=== PATIENT | male | born 1960 | race Caucasian/White ===

== ENCOUNTER 2020-02-05 03:16 | Emergency (ER) | payer OTHER, SELFPAY ==
[2020-02-05 03:22] VITALS: BP 201/107; PULSE 92; RESP 20; TEMP 36.8; O2SAT 98; BMI 49.4
--- NOTE | 2020-02-05 03:34 | ECG_ITS ---
Test Reason : CHEST PAIN Blood Pressure : / mmHG Vent. Rate : 085 BPM Atrial Rate : 085 BPM P-R Int : 148 ms QRS Dur : 076 ms QT Int : 396 ms P-R-T Axes : 063 020 042 degrees QTc Int : 471 ms Normal sinus rhythm Normal ECG When compared with ECG of 22-NOV-2019 11:41, Heart rate has increased Referred By: Nissa Burciaga Electronically Signed By:SUE EDDY MD
[2020-02-05 05:16] LABS: Basophils Percent Auto 0.9 % (0-2); Eosinophils Absolute Auto 0.3 X10*3/uL (0.0-0.4); Eosinophils Percent Auto 7.1 % (0-4); Hematocrit 36.5 % (42-52); Imm Gran Abs Auto 0.01 X10*3/uL (0.00-0.03); Imm Gran Pct Auto 0.3 % (0.0-0.4); Lymphocytes Absolute Auto 0.6 X10*3/uL (1.2-4.9); Lymphocytes Percent Auto 18.2 % (20-40); MANUAL DIFF FLAG NO; Mean Corpuscular HGB Conc 32.9 g/dl (31.0-36.0); Mean Corpuscular Hemoglobin 29.6 pg (27.0-33.0); Mean Corpuscular Volume 89.9 fL (80-98); Mean Platelet Volume 12.5 fL (9.4-12.4); Monocytes Absolute Auto 0.4 X10*3/uL (0.1-1.2); Monocytes Percent Auto 11.1 % (2-11); Neutrophils Absolute Auto 2.2 X10*3/uL (2.0-8.3); Neutrophils Percent Auto 62.4 % (45-73); Red Blood Count 4.06 X10*6/uL (4.60-5.80); Red Cell Distribution Width 14.9 % (11.0-16.0); SCAN SMEAR FLAG 1; White Blood Count 3.5 X10*3/uL (4.8-10.8)
[2020-02-05 05:17] LABS: Platelet Count 67 X10*3/uL (160-400)
[2020-02-05 05:43] LABS: Anion Gap 8 (12-20); Blood Urea Nitrogen 8 mg/dL (9-16); Calcium 8.1 mg/dL (8.4-10.2); Carbon Dioxide 24 mmol/L (22-29); Chloride 109 mmol/L (96-108); Creatinine Clr Calc Pharmacy 157.9; Estimated Glomerular Filt Rate > 60; Glucose Random 224 mg/dL (60-115); Potassium 4.2 mmol/l (3.3-5.1); Sodium 137 mmol/L (135-145)
[2020-02-05 05:45] LABS: B Type Natriuretic Peptide 20 pg/mL (<100); Troponin-I High Sensitivity 5.3 ng/L (<3.5-35.0)
--- NOTE | 2020-02-05 06:15 | ED.CHESTPAIN ---
HPI - Chest Pain General Chief Complaint: Chest Pain Stated Complaint: HIGH BLOOD PRESSURE Time Seen by Provider: 02/05/20 04:27 Source: patient Mode of arrival: ambulatory Limitations: no limitations History of Present Illness HPI narrative: patient comes in complaining of shortness of breath and hypertension. Patient states that he had no chest pain at all. Patient states he woke up gasping for air, took his blood pressure, it was elevated, then took his prescribed blood pressure medication and started feeling better. MD complaint: other ( Shortness of breath) Onset (ago): hour(s) Onset: during rest Pain radiation: none Pain scale (0-10): 0 Exacerbating factors: nothing Treatment prior to arrival: none Related Data Home Medications Medication Instructions Recorded Confirmed cyanocobalamin (vitamin B-12) 1,000 mcg PO DAILY 02/01/20 02/01/20 [Vitamin B-12] ferrous sulfate 324 mg PO DAILY 02/01/20 02/01/20 lisinopril 20 mg PO DAILY 02/01/20 02/01/20 nadolol 20 mg PO DAILY 02/01/20 02/01/20 Allergies Allergy/AdvReac Type Severity Reaction Status Date / Time No Known Allergies Allergy Verified 02/01/20 07:55 [No Known Allergies*] Review of Systems Review of Systems: Constitutional: No Weight loss, No Fever, No Chills, No Night Sweats, No Fatigue, No Malaise ENT/Mouth: No Hearing loss, No Ear Pain, No Nasal Congestion, No Sinus Pain, No Hoarseness, No sore throat, No Rhinorrhea, No Swallowing Difficulty Eyes: No Eye Pain, No Swelling, No Redness, No Foreign Body, No Discharge, No Vision Changes Cardiovascular: No Chest Pain, No SOB, No Dyspnea on Exertion, No Orthopnea, No Edema, No Palpitations Respiratory: No Cough, No Sputum, No Wheezing, No Smoke Exposure, Dyspnea which resolved now Gastrointestinal: No Nausea, No Vomiting, No Diarrhea, No Constipation, No abdominal Pain, No Hematochezia, No Melena Genitourinary: no irregular bleeding, No Dysuria, No Urinary Frequency, No Hematuria, No Urinary Incontinence, No Urgency, No Flank Pain, No Urinary Flow Changes, No Hesitancy Musculoskeletal: No joint pain, No Myalgias, No Joint Swelling Skin: No Skin Lesions, No rash Neuro: No Weakness, No Numbness, No Paresthesias, No Loss of Consciousness, No Dizziness, No Headache Psych: No Anxiety/Panic, No Depression, No SI/HI/AH/VH, No Social Issues, Heme/Lymph: No Bruising, No Bleeding,No Lymphadenopathy Endocrine: No Polyuria, No Polydipsia, No Temperature Intolerance PMF Past Medical History Medical History Hepatitis C History of drug use Iron deficiency anemia Morbid obesity Pancytopenia Pernicious anemia Surgical History History of esophagogastroduodenoscopy (EGD) Family History Family History (Updated 02/01/20 @ 10:59 by Cece Yang MD) Sister Colon cancer Father Colon cancer Social History Social History Advance Directives: No Physical Exam Vital Signs: Vital Signs: Vital Signs Temp Pulse Resp BP Pulse Ox 02/05/20 03:22 98.2 F 92 20 201/107 H 98 Body Mass Index 49.4 blood pressure now 152/78 Appearance: Alert. Oriented X3. No acute distress. Eyes: Pupils equal, round and reactive to light. ENT: Pharynx normal. Neck: Normal inspection. Neck supple. No lymph nodes noted. No crepitus CVS: Normal heart rate and rhythm. Pulses normal. Normal S1 and S2 Respiratory: No respiratory distress. Breath sounds normal. No Wheezing. No rales Abdomen: Soft and nontender. No rigidity. No distention. good BS x4 Skin: Skin warm and dry. Normal skin color. Normal skin turgor. Extremities: No lower extremity edema. No lower extremity edema. No Lacerations. No Rash Neuro: Oriented X 3. No motor deficit. No sensory deficit. Moving all extermities. No slurred speech. Course Reevaluation(s) Reevaluation #1: patient remains asymptomatic. MDM - Chest Pain MDM Narrative Medical decision making narrative: Patient's troponin is 5.3, patient has had previously slightly bumped troponin, chronic for the patient. Patient remains asymptomatic. As mentioned above, patient's blood pressure improved, now in the 150s systolic. Patient instructed to follow-up with his primary care physician and to be compliant with his home medication for blood pressure. Differential Diagnosis Differential diagnosis: Likely stable angina and atypical chest pain Medical Records Data Attestation: I reviewed the patient's medical records. Lab Data Attestation: I reviewed the patient's lab results. Result diagrams: 02/05/20 05:10 02/05/20 05:10 Labs: Lab Results 02/05/20 02/05/20 02/05/20 Range/Units 05:10 05:10 05:10 WBC 3.5 L (4.8-10.8) X10*3/uL RBC 4.06 L (4.60-5.80) X10*6/uL Hgb 12.0 L (14.0-18.0) g/dl Hct 36.5 L (42-52) % MCV 89.9 (80-98) fL MCH 29.6 (27.0-33.0) pg MCHC 32.9 (31.0-36.0) g/dl RDW 14.9 (11.0-16.0) % Plt Count 67 L D (160-400) X10*3/uL MPV 12.5 H (9.4-12.4) fL Immature Gran % (Auto) 0.3 (0.0-0.4) % Neut % (Auto) 62.4 (45-73) % Lymph % (Auto) 18.2 L (20-40) % [place] % (Auto) 11.1 H (2-11) % Eos % (Auto) 7.1 H (0-4) % Baso % (Auto) 0.9 (0-2) % Lymph # (Auto) 0.6 L (1.2-4.9) X10*3/uL [place] # (Auto) 0.4 (0.1-1.2) X10*3/uL Eos # (Auto) 0.3 (0.0-0.4) X10*3/uL Baso # (Auto) 0.0 (0.0-0.2) X10*3/uL Abs Immat Gran (auto) 0.01 (0.00-0.03) X10*3/uL Absolute Neuts (auto) 2.2 (2.0-8.3) X10*3/uL Absolute Nucleated RBC 0.000 (0.0-0.012) X10*3/uL Nucleated RBC % (auto) 0.0 (0.0-0.2) /100WBC Sodium 137 (135-145) mmol/L Potassium 4.2 (3.3-5.1) mmol/l Chloride 109 H (96-108) mmol/L Carbon Dioxide 24 (22-29) mmol/L Anion Gap 8 L (12-20) BUN 8 L (9-16) mg/dL Creatinine 0.73 (0.5-1.4) mg/dL Estim Creat Clear Calc 157.9 Estimated GFR > 60 Random Glucose 224 H (60-115) mg/dL Calcium 8.1 L (8.4-10.2) mg/dL Troponin I High Sens 5.3 (<3.5-35.0) ng/L B-Natriuretic Peptide 20 (<100) pg/mL Scores Heart Score History: -0- slightly suspicious ECG: -0- normal Age: -1- >45 - <65 Risk factory: -1- 1 or 2 risk factors Troponin: -0- < or = normal limit Score: 2 Risk: 1.7% Discharge Plan Discharge Clinical Impression: Acute dyspnea Hypertension Qualifiers: Hypertension type: essential hypertension Qualified Code(s): I10 - Essential (primary) hypertension Patient Disposition: Home, Self-Care Instructions: Chronic Hypertension (ED) Additional Instructions: please take your medications as prescribed. If you have any worsening symptoms, any new symptoms, please return to the emergency room or call 911 Prescriptions: No Action lisinopril 20 mg tablet 20 mg PO DAILY RF: 0 nadolol 20 mg tablet 20 mg PO DAILY RF: 0 ferrous sulfate 324 mg (65 mg iron) tablet,delayed release (DR/EC) 324 mg PO DAILY RF: 0 cyanocobalamin (vitamin B-12) [Vitamin B-12] 1,000 mcg Tablet 1,000 mcg PO DAILY RF: 0 Stand Alone Forms: Work/School Release
== END 2020-02-05 07:05 | disposition home or self-care (01) ==
PROVIDERS: Emergency Provider Emergency Medicine; PCP Internal Medicine
DX: R06.00 Dyspnea, unspecified (principal); I10 Essential (primary) hypertension; E11.9 Type 2 diabetes mellitus without complications; Z79.84 Long term (current) use of oral hypoglycemic drugs
CPT/HCPCS: 36415; 80048; 83880; 84484; 85025; 93005; 99283; 99284

== ENCOUNTER 2020-03-11 09:18 | Outpatient (REF) | payer OTHER, SELFPAY | END 2020-03-11 09:19 | disposition home or self-care (01) | LOC: HO.LAB 09:18 | PROVIDERS: Visit Provider Internal Medicine | DX: Z20.828 Contact with and (suspected) exposure to other viral communicable diseases (principal) | CPT/HCPCS: C9803; U0003 ==

== ENCOUNTER 2021-09-16 08:42 | Outpatient (REF) | payer OTHER, SELFPAY ==
[2021-09-16 09:25] LABS: COVID-19 Test Negative (Negative)
== END 2021-09-16 08:43 | disposition home or self-care (01) ==
LOC: HO.LAB 08:42
PROVIDERS: Visit Provider Internal Medicine
DX: Z20.822 Contact with and (suspected) exposure to COVID-19 (principal)
CPT/HCPCS: 87635; C9803

== ENCOUNTER 2022-05-06 08:30 | Outpatient (RCR) | payer OTHER, SELFPAY ==
[2020-02-01 09:45] VITALS: BP 162/82; PULSE 88; RESP 18; TEMP 36.9; O2SAT 97; BMI 49.4
[2020-02-01] MEDS: Cyanocobalamin (Vitamin B-12) 1,000 MCG/ML VIAL 1000 MCG IM (10:03)
[2020-02-01 10:34] LABS: MANUAL DIFF FLAG NO
[2020-02-01 10:47] LABS: Basophils Absolute Auto 0.1 X10*3/uL (0.0-0.2); Basophils Percent Auto 1.1 % (0-2); Eosinophils Absolute Auto 0.3 X10*3/uL (0.0-0.4); Eosinophils Percent Auto 6.3 % (0-4); Hematocrit 37.9 % (42-52); Hemoglobin 12.7 g/dl (14.0-18.0); Imm Gran Abs Auto 0.01 X10*3/uL (0.00-0.03); Imm Gran Pct Auto 0.2 % (0.0-0.4); Lymphocytes Absolute Auto 1.1 X10*3/uL (1.2-4.9); Mean Corpuscular HGB Conc 33.5 g/dl (31.0-36.0); Mean Corpuscular Volume 89.6 fL (80-98); Monocytes Absolute Auto 0.7 X10*3/uL (0.1-1.2); Monocytes Percent Auto 12.4 % (2-11); Neutrophils Absolute Auto 3.3 X10*3/uL (2.0-8.3); Red Blood Count 4.23 X10*6/uL (4.60-5.80); Red Cell Distribution Width 14.8 % (11.0-16.0); White Blood Count 5.4 X10*3/uL (4.8-10.8)
[2020-02-01 10:54] LABS: Platelet Count 94 X10*3/uL (160-400)
--- NOTE | 2020-02-01 10:56 | PM.HEMONCPN ---
Medical Summary - Medical Summary Chief complaint: Follow-up Medical Summary: Diagnosis: Pancytopenia, iron deficiency anemia/pernicious anemia History of hepatitis-C, received treatment with interferon in the s. Diagnosed with pernicious anemia in 2019. Vitamin B12 less than 146, positive intrinsic factor antibody. Also started on iron supplementation for iron deficiency. Interval History Interval history: patient is here in follow-up. He is doing very well and has no complaints today. He does not remember if he has been taking iron supplementation. He has been coming every month for his vitamin B12 injections. He denies any fatigue, loss of appetite or weight loss. He denies any abdominal discomfort or change in bowel habits. Review of Systems - Constitutional Reports as per HPI, Reports no additional constitutional complaints PMFSH Medical History: Medical History (Last Updated 02/01/20 @ 07:53 by Arielle Velazquez, RN) Hepatitis C History of drug use Iron deficiency anemia Morbid obesity Pancytopenia Pernicious anemia Family History: Family History (Last Updated 02/01/20 @ 10:59 by Cece Yang MD) Sister Colon cancer Father Colon cancer Surgical History: Surgical History (Last Updated 02/01/20 @ 07:54 by Arielle Velazquez, RN) History of esophagogastroduodenoscopy (EGD) Oncology Screenings - ECOG Performance Status ECOG Performance Status: 0 Home Medications and Allergies Home Medications Medication Instructions Recorded Confirmed Type cyanocobalamin (vitamin B-12) 1,000 mcg PO DAILY 02/01/20 02/01/20 History [Vitamin B-12] ferrous sulfate 324 mg PO DAILY 02/01/20 02/01/20 History lisinopril 20 mg PO DAILY 02/01/20 02/01/20 History nadolol 20 mg PO DAILY 02/01/20 02/01/20 History Allergies Allergy/AdvReac Type Severity Reaction Status Date / Time No Known Allergies Allergy Verified 02/01/20 07:55 [No Known Allergies*] Exam Vital signs: Vital Signs Temp 98.5 F 02/01/20 09:45 Pulse 88 02/01/20 09:45 Resp 18 02/01/20 09:45 BP 162/82 H 02/01/20 09:45 Pulse Ox 97 02/01/20 09:45 Intake & Output 01/31/20 02/01/20 02/01/20 18:59 06:59 18:59 Other: Weight 147.474 kg Weight 147.474 kg Body Mass Index 49.4 - Constitutional Present: no acute distress - Routine HEENT Exam Head: Present: atraumatic, normal inspection Eye: Present: EOMI - Routine Respiratory Exam Present: CTAB - Routine Cardiovascular Exam Cardiovascular: Present: S1, S2 Data - Labs CBC & Chem 7: 02/01/20 10:10 Labs: Laboratory Results - last 24 hr 02/01/20 10:10 WBC 5.4 RBC 4.23 L Hgb 12.7 L Hct 37.9 L MCV 89.6 MCH 30.0 MCHC 33.5 RDW 14.8 Plt Count 94 L MPV 13.0 H Immature Gran % (Auto) 0.2 Neut % (Auto) 60.0 Lymph % (Auto) 20.0 [place] % (Auto) 12.4 H Eos % (Auto) 6.3 H Baso % (Auto) 1.1 Lymph # (Auto) 1.1 L [place] # (Auto) 0.7 Eos # (Auto) 0.3 Baso # (Auto) 0.1 Abs Immat Gran (auto) 0.01 Absolute Neuts (auto) 3.3 Absolute Nucleated RBC 0.000 Nucleated RBC % (auto) 0.0 Progress Note: A/P (1) Pancytopenia Status: Chronic Assessment and plan: 1. This is a 59-year-old male with iron deficiency and pernicious anemia. He has mild intermittent neutropenia. He has a history of hepatitis-C, status post interferon therapy. His blood counts are stable, iron studies are pending. He is doing well and reports no symptoms. Follow-up for monthly B12 injections and six-month MD visit. - Time Spent With Patient Total time spent is greater than 50% in coordination of care (as documented) at patient's floor/unit and/or counseling patient: 15 - 24 minutes
[2020-02-01 11:04] LABS: Iron 48 mcg/dL (45-160); Percent Iron Saturation 15 % (15-50); Total Iron Binding Capacity 321 mcg/dL (228-428); Unsaturated Iron Binding 273 ug/dL
[2020-02-29 09:27] VITALS: BMI 50.2
[2020-02-29 09:28] VITALS: BP 169/86; PULSE 76; RESP 20; TEMP 37.2; O2SAT 98
[2020-02-29] MEDS: Cyanocobalamin (Vitamin B-12) 1,000 MCG/ML VIAL 1000 MCG IM (09:47)
[2020-03-31 10:20] VITALS: BP 158/83; PULSE 74; RESP 20; TEMP 36.8; O2SAT 98; BMI 48.9
[2020-03-31] MEDS: Cyanocobalamin (Vitamin B-12) 1,000 MCG/ML VIAL 1000 MCG IM (10:21)
--- NOTE | 2020-03-31 15:32 | MHC.HEMONC ---
Patient seen to get injection as documented. Follow-up booked.
[2020-05-02 09:48] VITALS: BP 182/97; PULSE 79; RESP 18; TEMP 36.9; O2SAT 98; BMI 48.5
[2020-05-02 10:05] VITALS: BP 132/72
[2020-05-02] MEDS: Cyanocobalamin (Vitamin B-12) 1,000 MCG/ML VIAL 1000 MCG IM (10:12)
--- NOTE | 2020-08-05 15:44 | P.PNHO_ITS ---
Medical Summary - Medical Summary Date of Service: 08/05/20 Chief complaint: Follow-up Medical Summary: Diagnosis: Pancytopenia, iron deficiency anemia/pernicious anemia History of hepatitis-C, received treatment with interferon in the 90s. Diagnosed with pernicious anemia in 2019. Vitamin B12 less than 146, positive intrinsic factor antibody. Also started on iron supplementation for iron deficiency. Interval History Interval history: Patient is here in follow-up after a long interval. He missed several appointments for his B12 injections. He states that he was busy with a new job. He denies any complaints such as fatigue, recent infections or change in medications. No loss of appetite or weight loss. Review of Systems - Constitutional Reports as per HPI, Reports no additional constitutional complaints PMFSH Medical History: Medical History (Last Reviewed 05/05/20 @ 17:05 by Rosa Pederson MD) Diabetes mellitus Essential (primary) hypertension Hepatitis C History of drug use Iron deficiency anemia Iron deficiency anemia Morbid obesity Pancytopenia Pernicious anemia Pernicious anemia Family History: Family History (Last Updated 02/07/20 @ 06:46 by Zulay Hearn Ching) Sister Colon cancer Father Colon cancer Mother Hypertension Surgical History: Surgical History (Last Reviewed 02/05/20 @ 06:20 by Nissa Burciaga MD) History of esophagogastroduodenoscopy (EGD) Social History: Social History (Last Reviewed 05/05/20 @ 17:05 by Rosa Pederson MD) Alcohol History: Alcohol intake: current Alcohol History Details: Alcohol intake frequency: holiday/special occasion Advance Directives: Advance Directives: No Advance Directives Information Provided: No Oncology Screenings - ECOG Performance Status ECOG Performance Status: 0 Home Medications and Allergies Allergies Allergy/AdvReac Type Severity Reaction Status Date / Time No Known Allergies Allergy Verified 05/05/20 17:04 [No Known Allergies*] Exam Vital signs: Vital Signs Temp 98.5 F 05/02/20 09:48 Pulse 79 05/02/20 09:48 Resp 18 05/02/20 09:48 BP 132/72 05/02/20 10:05 Pulse Ox 98 05/02/20 09:48 Weight 144.9 kg Body Mass Index 48.5 - Constitutional Present: no acute distress - Routine HEENT Exam Head: Present: atraumatic, normal inspection - Routine Respiratory Exam Present: CTAB - Routine Cardiovascular Exam Cardiovascular: Present: S1, S2 Data - Labs CBC & Chem 7: 08/05/20 16:00 Labs: 02/01/20 09:47 Cyanocobalamin (Vitamin B-12) [Vitamin B-12] 1,000 mcg IM ONCE ONE 02/01/20 10:10 CBC W/AUTO DIFF [Complete Blood Count Auto Diff] Routine IRON PROFILE Routine 02/29/20 08:06 Cyanocobalamin (Vitamin B-12) [Vitamin B-12] 1,000 mcg IM ONCE ONE 03/31/20 10:04 Cyanocobalamin (Vitamin B-12) [Vitamin B-12] 1,000 mcg IM ONCE ONE 05/02/20 09:52 Cyanocobalamin (Vitamin B-12) [Vitamin B-12] 1,000 mcg IM ONCE ONE Laboratory Last Values WBC 5.4 X10*3/uL (4.8-10.8) 02/01/20 10:10 RBC 4.23 X10*6/uL (4.60-5.80) L 02/01/20 10:10 Hgb 12.7 g/dl (14.0-18.0) L 02/01/20 10:10 Hct 37.9 % (42-52) L 02/01/20 10:10 MCV 89.6 fL (80-98) 02/01/20 10:10 MCH 30.0 pg (27.0-33.0) 02/01/20 10:10 MCHC 33.5 g/dl (31.0-36.0) 02/01/20 10:10 RDW 14.8 % (11.0-16.0) 02/01/20 10:10 Plt Count 94 X10*3/uL (160-400) L 02/01/20 10:10 MPV 13.0 fL (9.4-12.4) H 02/01/20 10:10 Immature Gran % (Auto) 0.2 % (0.0-0.4) 02/01/20 10:10 Neut % (Auto) 60.0 % (45-73) 02/01/20 10:10 Lymph % (Auto) 20.0 % (20-40) 02/01/20 10:10 [place] % (Auto) 12.4 % (2-11) H 02/01/20 10:10 Eos % (Auto) 6.3 % (0-4) H 02/01/20 10:10 Baso % (Auto) 1.1 % (0-2) 02/01/20 10:10 Lymph # (Auto) 1.1 X10*3/uL (1.2-4.9) L 02/01/20 10:10 [place] # (Auto) 0.7 X10*3/uL (0.1-1.2) 02/01/20 10:10 Eos # (Auto) 0.3 X10*3/uL (0.0-0.4) 02/01/20 10:10 Baso # (Auto) 0.1 X10*3/uL (0.0-0.2) 02/01/20 10:10 Abs Immat Gran (auto) 0.01 X10*3/uL (0.00-0.03) 02/01/20 10:10 Absolute Neuts (auto) 3.3 X10*3/uL (2.0-8.3) 02/01/20 10:10 Absolute Nucleated RBC 0.000 X10*3/uL (0.0-0.012) 02/01/20 10:10 Nucleated RBC % (auto) 0.0 /100WBC (0.0-0.2) 02/01/20 10:10 Iron 48 mcg/dL (45-160) 02/01/20 10:10 TIBC 321 mcg/dL (228-428) 02/01/20 10:10 % Saturation 15 % (15-50) 02/01/20 10:10 Unsat Iron Binding 273 ug/dL 02/01/20 10:10 Progress Note: A/P (1) Pancytopenia Status: Chronic Assessment and plan: 1. This is a 60-year-old male with iron deficiency and pernicious anemia. He has mild intermittent neutropenia. He has a history of hepatitis-C, status post interferon therapy. His blood counts are stable, but he has persistent iron deficiency anemia He is being started on ferrous sulfate three twenty five mg p .o. b.i.d.. Follow-up for monthly B12 injections and six-month MD visit. - Time Spent With Patient Total time spent is greater than 50% in coordination of care (as documented) at patient's floor/unit and/or counseling patient: 15 - 24 minutes
[2020-08-05 15:52] VITALS: BP 142/72; PULSE 80; RESP 20; TEMP 37.1; O2SAT 96
[2020-08-05 15:53] VITALS: BMI 46.5
[2020-08-05] MEDS: Cyanocobalamin (Vitamin B-12) 1,000 MCG/ML VIAL 1000 MCG IM (16:13)
[2020-08-05 16:24] LABS: Hemoglobin 11.9 g/dl (14.0-18.0); Mean Corpuscular Volume 88.2 fL (80-98); SCAN SMEAR FLAG 1
--- NOTE | 2020-08-05 16:25 | MHC.HEMONC ---
Pt here for follow up with Dr Yang. States he is feeling very well. Has missed last 2 months of B-12 injection due to work. B-12 injection given today. Will follow up in 6 months. B-12 injection scheduled for 1 month.
[2020-08-05 16:26] LABS: Basophils Percent Auto 0.9 % (0-2); Eosinophils Absolute Auto 0.4 X10*3/uL (0.0-0.4); Eosinophils Percent Auto 8.1 % (0-4); Hematocrit 37.4 % (42-52); Lymphocytes Absolute Auto 0.9 X10*3/uL (1.2-4.9); Lymphocytes Percent Auto 19.7 % (20-40); Mean Corpuscular HGB Conc 31.8 g/dl (31.0-36.0); Mean Corpuscular Hemoglobin 28.1 pg (27.0-33.0); Monocytes Absolute Auto 0.5 X10*3/uL (0.1-1.2); Monocytes Percent Auto 10.9 % (2-11); Neutrophils Absolute Auto 2.8 X10*3/uL (2.0-8.3); Neutrophils Percent Auto 60.4 % (45-73); Red Blood Count 4.24 X10*6/uL (4.60-5.80); Red Cell Distribution Width 17.1 % (11.0-16.0); White Blood Count 4.6 X10*3/uL (4.8-10.8)
[2020-08-05 16:37] LABS: Iron 31 mcg/dL (45-160); Percent Iron Saturation 10 % (15-50); Total Iron Binding Capacity 296 mcg/dL (228-428); Unsaturated Iron Binding 265 ug/dL
[2020-08-05 17:00] LABS: PLT ABN DIST 1; Platelet Count 75 X10*3/uL (160-400)
[2020-08-05 17:05] LABS: Vitamin B12 526 pg/mL (200-900)
--- NOTE | 2020-08-06 15:15 | MHC.HEMONCMA ---
Per Dr Yang, patient's iron level is low- she sent an rx to his pharmacy. I called and told him to get the medication from the pharmacy. He understands.
[2020-09-02 16:25] VITALS: BP 141/74; PULSE 78; RESP 18; TEMP 36.6; O2SAT 97; BMI 45.5
[2020-09-02] MEDS: Cyanocobalamin (Vitamin B-12) 1,000 MCG/ML VIAL 1000 MCG IM (16:30)
--- NOTE | 2020-09-02 17:14 | MHC.HEMONC ---
B-12 injection given as ordered.
--- NOTE | 2021-02-09 10:53 | P.PNHO_ITS ---
Medical Summary - Medical Summary Medical Summary: Diagnosis: Pancytopenia, iron deficiency anemia/pernicious anemia History of hepatitis-C, received treatment with interferon in the 90s. Diagnosed with pernicious anemia in 2019. Vitamin B12 less than 146, positive intrinsic factor antibody. Also started on iron supplementation for iron deficiency. Interval History Interval history: Patient is here in follow-up after a long interval. He missed several appointments for his B12 injections. He states that he was busy with a new job. He denies any complaints such as fatigue, recent infections or change in medications. No loss of appetite or weight loss. [facility] Medical History: Medical History (Last Reviewed 02/03/21 @ 16:46 by Rosa Pederson MD) Diabetes mellitus Essential (primary) hypertension Hepatitis C History of drug use Iron deficiency anemia Iron deficiency anemia Lumbar degenerative disc disease Morbid obesity Pancytopenia Pernicious anemia Pernicious anemia Family History: Family History (Last Reviewed 02/03/21 @ 15:54 by Katie Diaz) Sister Colon cancer Father Colon cancer Mother Hypertension Family/Other Substance use disorder Surgical History: Surgical History (Last Reviewed 02/03/21 @ 15:54 by Katie Diaz) History of esophagogastroduodenoscopy (EGD) Social History: Social History (Last Reviewed 02/03/21 @ 16:17 by Rosa Pederson MD) Living Situation History: Housing: Apartment Alcohol History: Alcohol intake: current Alcohol History Details: Alcohol intake frequency: holiday/special occasion Alcohol type: beer Tobacco History: Patient Tobacco Use Status: Former Tobacco user Tobacco use type: Cigarette e-Cigarette/Vaping Use: Never Used Second Hand Smoke Exposure: No Advance Directives: Advance Directives: No Advance Directives Information Provided: No Occupation Assessmet: service: No Current occupational status: employed Current occupational exposures/hazards: No Home Medications and Allergies Allergies Allergy/AdvReac Type Severity Reaction Status Date / Time No Known Allergies Allergy Verified 02/03/21 16:15 [No Known Allergies*] Exam Vital signs: Vital Signs Temp 97.9 F 09/02/20 16:25 Pulse 78 09/02/20 16:25 Resp 18 09/02/20 16:25 BP 141/74 H 09/02/20 16:25 Pulse Ox 97 09/02/20 16:25 Weight 135.8 kg Body Mass Index 45.5 - Constitutional Present: no acute distress - Routine HEENT Exam Head: Present: atraumatic, normal inspection - Routine Respiratory Exam Present: CTAB - Routine Cardiovascular Exam Cardiovascular: Present: S1, S2 Data - Labs CBC & Chem 7: 08/05/20 16:00 Labs: 02/01/20 09:47 Cyanocobalamin (Vitamin B-12) [Vitamin B-12] 1,000 mcg IM ONCE ONE 02/01/20 10:10 CBC W/AUTO DIFF [Complete Blood Count Auto Diff] Routine IRON PROFILE Routine 02/29/20 08:06 Cyanocobalamin (Vitamin B-12) [Vitamin B-12] 1,000 mcg IM ONCE ONE 03/31/20 10:04 Cyanocobalamin (Vitamin B-12) [Vitamin B-12] 1,000 mcg IM ONCE ONE 05/02/20 09:52 Cyanocobalamin (Vitamin B-12) [Vitamin B-12] 1,000 mcg IM ONCE ONE Laboratory Last Values WBC 5.4 X10*3/uL (4.8-10.8) 02/01/20 10:10 RBC 4.23 X10*6/uL (4.60-5.80) L 02/01/20 10:10 Hgb 12.7 g/dl (14.0-18.0) L 02/01/20 10:10 Hct 37.9 % (42-52) L 02/01/20 10:10 MCV 89.6 fL (80-98) 02/01/20 10:10 MCH 30.0 pg (27.0-33.0) 02/01/20 10:10 MCHC 33.5 g/dl (31.0-36.0) 02/01/20 10:10 RDW 14.8 % (11.0-16.0) 02/01/20 10:10 Plt Count 94 X10*3/uL (160-400) L 02/01/20 10:10 MPV 13.0 fL (9.4-12.4) H 02/01/20 10:10 Immature Gran % (Auto) 0.2 % (0.0-0.4) 02/01/20 10:10 Neut % (Auto) 60.0 % (45-73) 02/01/20 10:10 Lymph % (Auto) 20.0 % (20-40) 02/01/20 10:10 [place] % (Auto) 12.4 % (2-11) H 02/01/20 10:10 Eos % (Auto) 6.3 % (0-4) H 02/01/20 10:10 Baso % (Auto) 1.1 % (0-2) 02/01/20 10:10 Lymph # (Auto) 1.1 X10*3/uL (1.2-4.9) L 02/01/20 10:10 [place] # (Auto) 0.7 X10*3/uL (0.1-1.2) 02/01/20 10:10 Eos # (Auto) 0.3 X10*3/uL (0.0-0.4) 02/01/20 10:10 Baso # (Auto) 0.1 X10*3/uL (0.0-0.2) 02/01/20 10:10 Abs Immat Gran (auto) 0.01 X10*3/uL (0.00-0.03) 02/01/20 10:10 Absolute Neuts (auto) 3.3 X10*3/uL (2.0-8.3) 02/01/20 10:10 Absolute Nucleated RBC 0.000 X10*3/uL (0.0-0.012) 02/01/20 10:10 Nucleated RBC % (auto) 0.0 /100WBC (0.0-0.2) 02/01/20 10:10 Iron 48 mcg/dL (45-160) 02/01/20 10:10 TIBC 321 mcg/dL (228-428) 02/01/20 10:10 % Saturation 15 % (15-50) 02/01/20 10:10 Unsat Iron Binding 273 ug/dL 02/01/20 10:10 Assessment and Plan (1) Pancytopenia Status: Chronic Assessment and plan: 1. This is a 60-year-old male with iron deficiency and pernicious anemia. He has mild intermittent neutropenia. He has a history of hepatitis-C, status post interferon therapy. His blood counts are stable, but he has persistent iron def iciency anemia He is being started on ferrous sulfate three twenty five mg p.o. b.i.d.. Follow-up for monthly B12 injections and six-month MD visit.
--- NOTE | 2021-02-16 10:38 | P.PNHO_ITS ---
Medical Summary - Medical Summary Date of Service: 02/16/21 Chief complaint: Follow-up Medical Summary: Diagnosis: Pancytopenia, iron deficiency anemia/pernicious anemia History of hepatitis-C, received treatment with interferon in the . Diagnosed with pernicious anemia in 2019. Vitamin B12 less than 146, positive intrinsic factor antibody. Also started on iron supplementation for iron deficiency. Interval History Interval history: Patient is here in follow-up. He is doing quite well and has no complaints today. He has been getting monthly vitamin B12 injections. He denies any exertional chest pain, shortness of breath or recent infections. No changes to his bowel habits. Review of Systems - Constitutional Reports as per HPI, Reports no additional constitutional complaints - Cardiovascular Reports no additional cardiovascular complaints - Respiratory Reports no additional respiratory complaints PMFSH Medical History: Medical History (Last Reviewed 02/16/21 @ 10:51 by Reta Larsen) Diabetes mellitus Essential (primary) hypertension Hepatitis C History of drug use Iron deficiency anemia Iron deficiency anemia Lumbar degenerative disc disease Morbid obesity Pancytopenia Pernicious anemia Pernicious anemia Family History: Family History (Last Reviewed 02/16/21 @ 10:51 by Reta Larsen) Sister Colon cancer Father Colon cancer Mother Hypertension Family/Other Substance use disorder Surgical History: Surgical History (Last Reviewed 02/16/21 @ 10:51 by Reta Larsen) History of esophagogastroduodenoscopy (EGD) Social History: Social History (Last Reviewed 02/16/21 @ 10:51 by Reta Larsen) Living Situation History: Housing: Apartment Alcohol History: Alcohol intake: current Alcohol History Details: Alcohol intake frequency: holiday/special occasion Alcohol type: beer Tobacco History: Patient Tobacco Use Status: Former Tobacco user Tobacco use type: Cigarette e-Cigarette/Vaping Use: Never Used Second Hand Smoke Exposure: No Advance Directives: Advance Directives: No Advance Directives Information Provided: No Occupation Assessmet: service: No Current occupational status: employed Current occupational exposures/hazards: No Home Medications and Allergies Allergies Allergy/AdvReac Type Severity Reaction Status Date / Time No Known Allergies Allergy Verified 02/16/21 10:51 [No Known Allergies*] Exam Vital signs: Vital Signs Temp 97.9 F 09/02/20 16:25 Pulse 78 09/02/20 16:25 Resp 18 09/02/20 16:25 BP 141/74 H 09/02/20 16:25 Pulse Ox 97 09/02/20 16:25 Weight 135.8 kg Body Mass Index 45.5 - Constitutional Present: no acute distress - Routine HEENT Exam Head: Present: atraumatic, normal inspection - Routine Respiratory Exam Present: CTAB - Routine Cardiovascular Exam Cardiovascular: Present: S1, S2 Data - Labs CBC & Chem 7: 02/16/21 10:56 Labs: 02/01/20 09:47 Cyanocobalamin (Vitamin B-12) [Vitamin B-12] 1,000 mcg IM ONCE ONE 02/01/20 10:10 CBC W/AUTO DIFF [Complete Blood Count Auto Diff] Routine IRON PROFILE Routine 02/29/20 08:06 Cyanocobalamin (Vitamin B-12) [Vitamin B-12] 1,000 mcg IM ONCE ONE 03/31/20 10:04 Cyanocobalamin (Vitamin B-12) [Vitamin B-12] 1,000 mcg IM ONCE ONE 05/02/20 09:52 Cyanocobalamin (Vitamin B-12) [Vitamin B-12] 1,000 mcg IM ONCE ONE 08/05/20 15:57 Cyanocobalamin (Vitamin B-12) [Vitamin B-12] 1,000 mcg IM ONCE ONE 08/05/20 16:00 Complete Blood Count Auto Diff Routine IRON PROFILE Routine SLIDE REVIEW Routine Vitamin B12 Routine 09/02/20 15:18 Cyanocobalamin (Vitamin B-12) [Vitamin B-12] 1,000 mcg IM ONCE ONE 09/30/20 16:05 Cyanocobalamin (Vitamin B-12) [Vitamin B-12] 1,000 mcg IM ONCE ONE Laboratory Last Values WBC 4.6 X10*3/uL (4.8-10.8) L 08/05/20 16:00 RBC 4.24 X10*6/uL (4.60-5.80) L 08/05/20 16:00 Hgb 11.9 g/dl (14.0-18.0) L 08/05/20 16:00 Hct 37.4 % (42-52) L 08/05/20 16:00 MCV 88.2 fL (80-98) 08/05/20 16:00 MCH 28.1 pg (27.0-33.0) 08/05/20 16:00 MCHC 31.8 g/dl (31.0-36.0) 08/05/20 16:00 RDW 17.1 % (11.0-16.0) H 08/05/20 16:00 Plt Count 75 X10*3/uL (160-400) L 08/05/20 16:00 MPV Not Reportable 08/05/20 16:00 Immature Gran % (Auto) 0.0 % (0.0-0.4) 08/05/20 16:00 Neut % (Auto) 60.4 % (45-73) 08/05/20 16:00 Lymph % (Auto) 19.7 % (20-40) L 08/05/20 16:00 [place] % (Auto) 10.9 % (2-11) 08/05/20 16:00 Eos % (Auto) 8.1 % (0-4) H 08/05/20 16:00 Baso % (Auto) 0.9 % (0-2) 08/05/20 16:00 Lymph # (Auto) 0.9 X10*3/uL (1.2-4.9) L 08/05/20 16:00 [place] # (Auto) 0.5 X10*3/uL (0.1-1.2) 08/05/20 16:00 Eos # (Auto) 0.4 X10*3/uL (0.0-0.4) 08/05/20 16:00 Baso # (Auto) 0.0 X10*3/uL (0.0-0.2) 08/05/20 16:00 Abs Immat Gran (auto) 0.00 X10*3/uL (0.00-0.03) 08/05/20 16:00 Absolute Neuts (auto) 2.8 X10*3/uL (2.0-8.3) 08/05/20 16:00 Absolute Nucleated RBC 0.000 X10*3/uL (0.0-0.012) 08/05/20 16:00 Nucleated RBC % (auto) 0.0 /100WBC (0.0-0.2) 08/05/20 16:00 Smear Tech's Comments Not Reportable 08/05/20 16:00 Iron 31 mcg/dL (45-160) L 08/05/20 16:00 TIBC 296 mcg/dL (228-428) 08/05/20 16:00 % Saturation 10 % (15-50) L 08/05/20 16:00 Unsat Iron Binding 265 ug/dL 08/05/20 16:00 Vitamin B12 526 pg/mL (200-900) 08/05/20 16:00 Assessment and Plan Patient Active problem list reviewed?: Yes (1) Pancytopenia Status: Chronic Assessment and plan: 1. This is a 60-year-old male with iron deficiency and pernicious anemia. He is on parenteral B12 therapy, continue with once monthly injections. Anemia as well as thrombocytopenia is improved and stable. 2. Chronic thrombocytopenia related to history of hepatitis-C/liver cirrhosis. 3. Iron deficiency anemia. He is on oral iron supplementation, iron deficiency has resolved. Follow-up in 6 months. - Time Spent With Patient Time Spent with Patient (in minutes): 15
[2021-02-16 10:49] VITALS: BP 140/74; PULSE 91; RESP 16; TEMP 36.4; O2SAT 97; BMI 41.2
[2021-02-16 11:22] LABS: MANUAL DIFF FLAG NO
[2021-02-16] MEDS: Cyanocobalamin (Vitamin B-12) 1,000 MCG/ML VIAL 1000 MCG IM (11:25)
[2021-02-16 11:30] LABS: Basophils Percent Auto 0.5 % (0-2); Eosinophils Absolute Auto 0.1 X10*3/uL (0.0-0.4); Eosinophils Percent Auto 1.8 % (0-4); Imm Gran Abs Auto 0.01 X10*3/uL (0.00-0.03); Imm Gran Pct Auto 0.3 % (0.0-0.4); Lymphocytes Absolute Auto 0.5 X10*3/uL (1.2-4.9); Lymphocytes Percent Auto 12.7 % (20-40); Mean Corpuscular HGB Conc 32.4 g/dl (31.0-36.0); Mean Corpuscular Hemoglobin 27.3 pg (27.0-33.0); Mean Corpuscular Volume 84.3 fL (80-98); Monocytes Absolute Auto 0.4 X10*3/uL (0.1-1.2); Monocytes Percent Auto 10.7 % (2-11); Neutrophils Absolute Auto 2.9 X10*3/uL (2.0-8.3); Platelet Count 72 X10*3/uL (160-400); Red Blood Count 4.39 X10*6/uL (4.60-5.80); Red Cell Distribution Width 17.3 % (11.0-16.0); White Blood Count 3.9 X10*3/uL (4.8-10.8)
[2021-02-16 11:42] LABS: Iron 49 mcg/dL (45-160); Percent Iron Saturation 16 % (15-50); Total Iron Binding Capacity 307 mcg/dL (228-428); Unsaturated Iron Binding 258 ug/dL
--- NOTE | 2021-08-03 09:37 | PM.HEMONCPN ---
Medical Summary - Medical Summary Date of Service: 08/03/21 Chief complaint: follow-up Medical Summary: Diagnosis: Pancytopenia, iron deficiency anemia/pernicious anemia History of hepatitis-C, received treatment with interferon in the . Diagnosed with pernicious anemia in 2019. Vitamin B12 less than 146, positive intrinsic factor antibody. Also started on iron supplementation for iron deficiency. Interval History Interval history: Patient is here in follow-up. He is doing quite well and has no complaints today. He has been noncompliant with taking oral iron and he has not been getting vitamin B12 injections. He denies any exertional chest pain, shortness of breath or recent infections. No changes to his bowel habits. Review of Systems - Constitutional Reports as per HPI, Reports no additional constitutional complaints - Cardiovascular Reports no additional cardiovascular complaints - Respiratory Reports no additional respiratory complaints PMFSH Medical History: Medical History (Last Updated 05/07/21 @ 09:21 by Rosa Pederson MD) Diabetes mellitus Encounter for circumcision Essential (primary) hypertension Hepatitis C History of drug use Iron deficiency anemia Iron deficiency anemia Lumbar degenerative disc disease Morbid obesity Pancytopenia Pernicious anemia Pernicious anemia Family History: Family History (Last Reviewed 02/16/21 @ 10:51 by Reta Larsen) Sister Colon cancer Father Colon cancer Mother Hypertension Family/Other Substance use disorder Surgical History: Surgical History (Last Reviewed 02/16/21 @ 10:51 by Reta Larsen) History of esophagogastroduodenoscopy (EGD) Social History: Social History (Last Reviewed 02/16/21 @ 10:51 by Reta Larsen) Living Situation History: Housing: Apartment Tobacco History: Patient Tobacco Use Status: Former Tobacco user Tobacco use type: Cigarette e-Cigarette/Vaping Use: Never Used Second Hand Smoke Exposure: No Advance Directives: Advance Directives: No Advance Directives Information Provided: No Occupation Assessmet: service: No Current occupational status: employed Current occupational exposures/hazards: No Oncology Screenings - ECOG Performance Status ECOG Performance Status: 1 Home Medications and Allergies Allergies Allergy/AdvReac Type Severity Reaction Status Date / Time No Known Allergies Allergy Verified 02/16/21 10:51 [No Known Allergies*] Exam Vital signs: Vital Signs Temp 97.5 F 02/16/21 10:49 Pulse 91 10/25/21 10:49 Resp 16 02/16/21 10:49 BP 140/74 H 02/16/21 10:49 Pulse Ox 97 02/16/21 10:49 Weight 123.1 kg BMI result Body Mass Index 41.2 - Constitutional Present: no acute distress - Routine HEENT Exam Head: Present: atraumatic, normal inspection - Routine Respiratory Exam Present: CTAB - Routine Cardiovascular Exam Cardiovascular: Present: S1, S2 Data - Labs CBC & Chem 7: 08/03/21 10:42 Assessment and Plan Patient Active problem list reviewed?: Yes (1) Pancytopenia Status: Chronic Assessment and plan: 1. This is a 61-year-old male with iron deficiency and pernicious anemia. He has not been taking oral iron and not received parenteral B12 therapy in several months. He will be prescribed oral iron and he was advised to resume monthly parenteral B12 injections. 2. Chronic thrombocytopenia related to history of hepatitis-C/liver cirrhosis. Follow-up in 6 months. - Time Spent With Patient Time Spent with Patient (in minutes): 15
[2021-08-03 10:26] VITALS: BP 176/92; PULSE 68; TEMP 36.9; O2SAT 97; BMI 39.5
[2021-08-03 10:43] LABS: MANUAL DIFF FLAG NO
[2021-08-03] MEDS: Cyanocobalamin (Vitamin B-12) 1,000 MCG/ML VIAL 1000 MCG IM (10:48)
[2021-08-03 11:05] LABS: Basophils Percent Auto 1.2 % (0-2); Eosinophils Absolute Auto 0.2 X10*3/uL (0.0-0.4); Eosinophils Percent Auto 6.9 % (0-4); Hematocrit 33.9 % (42.0-52.0); Imm Gran Abs Auto 0.01 X10*3/uL (0.00-0.03); Imm Gran Pct Auto 0.3 % (0.0-0.4); Lymphocytes Absolute Auto 0.6 X10*3/uL (1.2-4.9); Lymphocytes Percent Auto 17.6 % (20-40); Mean Corpuscular HGB Conc 32.4 g/dl (31.0-36.0); Mean Corpuscular Volume 83.3 fL (80.0-98.0); Monocytes Absolute Auto 0.4 X10*3/uL (0.1-1.2); Neutrophils Absolute Auto 2.2 x10*3/uL (2.0-8.3); Red Blood Count 4.07 X10*6/uL (4.60-5.80); Red Cell Distribution Width 18.1 % (11.0-16.0); White Blood Count 3.5 X10*3/uL (4.8-10.8)
[2021-08-03 11:07] LABS: Platelet Count 71 X10*3/uL (160-400)
[2021-08-03 11:16] LABS: Iron 31 mcg/dL (45-160); Percent Iron Saturation 10 % (15-50); Total Iron Binding Capacity 296 mcg/dL (228-428); Unsaturated Iron Binding 265 ug/dL
[2021-08-03 12:43] LABS: Vitamin B12 369 pg/mL (200-900)
--- NOTE | 2021-08-03 16:15 | MHC.HEMONC ---
Addendum entered by Beti Osman RN 08/03/21 16:16: Next B12 injection scheduled for 08/31/21. Original Note: Patient arrived for follow up with Dr Yang. Vital signs done, medications reviewed and labs drawn by phlebotomy. Dr Yang in to see the patient. Follow up scheduled for 02/02/22. Patient called to inform him that a prescription for iron has been called in. Patient departed the unit.
--- NOTE | 2021-08-31 14:08 | HE.ONCSEC ---
CALLED PT DUE TO N/S TODAY FOR INJECTION . HE STATED HE THOUGHT THE NURSE SAID TO COME IN 09/02/21( WHICH WAS ACTUALLY FOR TODAY ) SO I RESCHEDULED PT FOR 09/02/21 .
[2021-09-02 10:45] VITALS: BP 158/76; PULSE 91; RESP 18; TEMP 36.8; O2SAT 97
[2021-09-02] MEDS: Cyanocobalamin (Vitamin B-12) 1,000 MCG/ML VIAL 1000 MCG IM (10:48)
--- NOTE | 2021-09-02 11:46 | MHC.HEMONC ---
Pt was in for his monthly B12 injection, VSS, no labs ordered. Nurse admin his B12 1,000 mcg IM to pt's R deltoid, which he tolerated w/ no issues. Pt received d/c packet w/ his next B12 injection booked on 09/28/21.
[2021-09-28 10:31] VITALS: BP 149/81; PULSE 82; RESP 18; TEMP 36.8; O2SAT 98
[2021-09-28] MEDS: Cyanocobalamin (Vitamin B-12) 1,000 MCG/ML VIAL 1000 MCG IM (10:34)
--- NOTE | 2021-09-28 17:42 | MHC.HEMONC ---
Pt was here for monthly B12 injection, in good spirits, VSS, nurse admin B12 1,000 mcg IM to pt's L deltoid, which he tolerated well. Pt received d/c packet, booked for next B12 on 11/02/21.
[2021-12-03] MEDS: Cyanocobalamin (Vitamin B-12) 1,000 MCG/ML VIAL 1000 MCG IM (11:05)
--- NOTE | 2021-12-03 13:38 | MHC.HEMONC ---
B12 1000mcg administered to left deltoid and well tolerated. No complaints at this time. Follow up appt given- calender provided.
[2021-12-31] MEDS: Cyanocobalamin (Vitamin B-12) 1,000 MCG/ML VIAL 1000 MCG IM (09:48)
[2021-12-31 10:33] LABS: INTERNATIONAL NORM RATIO 1.8 (0.9-1.1); Prothrombin Time 21.2 SEC (10.0-13.1)
[2021-12-31 10:35] LABS: Partial Thromboplastin Time 34.6 SEC (26.0-36.4)
[2021-12-31 10:36] LABS: Hemoglobin 11.2 g/dl (14.0-18.0); Imm Gran Abs Auto 0.01 X10*3/uL (0.00-0.03); Imm Gran Pct Auto 0.3 % (0.0-0.4); SCAN SMEAR FLAG 1
--- NOTE | 2021-12-31 10:37 | MHC.HEMONC ---
B12 1000mcg administered to left deltoid and well tolerated. Heather provided- follow up with Dr. Yang next month.
[2021-12-31 10:38] LABS: Basophils Percent Auto 0.8 % (0-2); Eosinophils Absolute Auto 0.3 X10*3/uL (0.0-0.4); Eosinophils Percent Auto 8.5 % (0-4); Hematocrit 34.6 % (42.0-52.0); Lymphocytes Absolute Auto 0.6 X10*3/uL (1.2-4.9); Lymphocytes Percent Auto 16.8 % (20-40); Mean Corpuscular HGB Conc 32.4 g/dl (31.0-36.0); Mean Corpuscular Volume 83.4 fL (80.0-98.0); Monocytes Absolute Auto 0.4 X10*3/uL (0.1-1.2); Monocytes Percent Auto 10.1 % (2-11); Neutrophils Absolute Auto 2.4 x10*3/uL (2.0-8.3); Neutrophils Percent Auto 63.5 % (45-73); Red Blood Count 4.15 X10*6/uL (4.60-5.80); Red Cell Distribution Width 18.5 % (11.0-16.0); White Blood Count 3.8 X10*3/uL (4.8-10.8)
[2021-12-31 10:40] LABS: PLT ABN DIST 1; Platelet Count 81 X10*3/uL (160-400)
[2021-12-31 10:41] LABS: MANUAL DIFF FLAG NO
[2021-12-31 11:22] LABS: Alanine Aminotransferase 25 U/L (0-40); Albumin Level 3.2 g/dL (3.5-5.0); Alkaline Phosphatase 96 U/L (39-117); Aspartate Amino Transferase 26 U/L (5-37); Bilirubin Direct 0.5 mg/dL (0.0-0.5); Bilirubin Total 1.2 mg/dL (0.0-1.0)
[2022-01-01 07:26] LABS: HIV AB/AG Nonreactive (Nonreactive); HIV Num 1 0.13 S/CO (0.00-0.99)
[2022-01-01 07:29] LABS: ~HepC Num1 17.88 S/CO (0.00-0.79); ~Hepatitis C Antibody Reactive (Nonreactive)
[2022-01-03 15:01] LABS: HCV Log PCR <1.18 NOT DETECTED Log IU/mL (NOT DETECTED); HepC Viral Load <15 NOT DETECTED IU/mL (NOT DETECTED)
[2022-02-02 08:12] VITALS: BP 145/73; PULSE 65; RESP 14; TEMP 36.8; O2SAT 98; BMI 37.3
--- NOTE | 2022-02-02 08:32 | MHC.HEMONCMA ---
patient seen today for follow up leukopenia, VSS, no labs, 1 yr follow up.
[2022-02-02] MEDS: Cyanocobalamin (Vitamin B-12) 1,000 MCG/ML VIAL 1000 MCG IM (08:44)
--- NOTE | 2022-02-02 08:48 | MHC.HEMONC ---
B12 injection given right deltoid and tolerated well. Next injection scheduled for 1 month.
--- NOTE | 2022-02-02 10:35 | PM.HEMONCPN ---
Medical Summary - Medical Summary Date of Service: 02/02/22 Chief complaint: Follow-up Medical Summary: Diagnosis: Pancytopenia, iron deficiency anemia/pernicious anemia History of hepatitis-C, received treatment with interferon in the 90s. Diagnosed with pernicious anemia in 2019. Vitamin B12 less than 146, positive intrinsic factor antibody. Also started on iron supplementation for iron deficiency. Interval History Interval history: Patient is here in follow-up. He is doing quite well and has no complaints today. He denies any exertional chest pain, shortness of breath or recent infections. No changes to his bowel habits. Review of Systems - Constitutional Reports as per HPI, Reports no additional constitutional complaints - Cardiovascular Reports no additional cardiovascular complaints - Respiratory Reports no additional respiratory complaints REPLACED BY [facility] Medical History: Medical History (Last Reviewed 02/02/22 @ 08:14 by Maite Montalvo) Diabetes mellitus Encounter for circumcision Essential (primary) hypertension History of drug use Iron deficiency anemia Iron deficiency anemia Lumbar degenerative disc disease Morbid obesity Pancytopenia Pernicious anemia Pernicious anemia Family History: Family History (Last Reviewed 02/02/22 @ 08:14 by Maite Montalvo) Sister Colon cancer Father Colon cancer Mother Hypertension Family/Other Substance use disorder Surgical History: Surgical History (Last Reviewed 02/02/22 @ 08:14 by Maite Montalvo) History of esophagogastroduodenoscopy (EGD) Social History: Social History (Last Reviewed 02/02/22 @ 08:14 by Maite Montalvo) Living Situation History: Housing: Apartment Tobacco History: Patient Tobacco Use Status: Former Tobacco user Tobacco use type: Cigarette e-Cigarette/Vaping Use: Never Used Second Hand Smoke Exposure: No Advance Directives: Advance Directives: No Advance Directives Information Provided: No Occupation Assessmet: service: No Current occupational status: employed Current occupational exposures/hazards: No Oncology Screenings - ECOG Performance Status ECOG Performance Status: 0 Home Medications and Allergies Allergies Allergy/AdvReac Type Severity Reaction Status Date / Time No Known Allergies Allergy Verified 10/06/21 09:51 [No Known Allergies*] Exam Vital signs: Vital Signs Temp 98.2 F 02/02/22 08:12 Pulse 65 02/02/22 08:12 Resp 14 02/02/22 08:12 BP 145/73 H 02/02/22 08:12 Pulse Ox 98 02/02/22 08:12 O2 Del Method 02/02/22 08:12 Intake & Output 02/01/22 02/02/22 02/02/22 18:59 06:59 18:59 Other: Weight 111.5 kg [place] Weight in Grams [id number] Weight 111.5 kg BMI result Body Mass Index 37.3 - Constitutional Present: no acute distress - Routine HEENT Exam Head: Present: atraumatic, normal inspection - Routine Neck Exam Absent: lymphadenopathy - Routine Respiratory Exam Present: CTAB - Routine Cardiovascular Exam Cardiovascular: Present: S1, S2 Data - Labs CBC & Chem 7: 12/31/21 10:11 Assessment and Plan Patient Active problem list reviewed?: Yes (1) Pancytopenia Status: Chronic Assessment and plan: 1. This is a 61-year-old male with iron deficiency and pernicious anemia. He is on monthly parenteral B12 injections. He takes oral iron intermittently. 2. Chronic thrombocytopenia related to history of hepatitis-C/liver cirrhosis. Blood work a month ago was stable. Follow-up in 6 months. - Time Spent With Patient Time Spent with Patient (in minutes): 15
[2022-03-03] MEDS: Cyanocobalamin (Vitamin B-12) 1,000 MCG/ML VIAL 1000 MCG IM (08:18)
--- NOTE | 2022-03-03 09:07 | MHC.HEMONC ---
B12 1000mmcg administered to left deltoid- well tolerated. Calender provided.
[2022-04-01] MEDS: Cyanocobalamin (Vitamin B-12) 1,000 MCG/ML VIAL 1000 MCG IM (08:28)
--- NOTE | 2022-04-01 08:31 | MHC.HEMONC ---
Pt here for monthly B-12 injection. Injection given in left arm-tolerated well. Next appointment scheduled in one month. Declines discharge packet. Calendar given.
[2022-05-06] MEDS: Cyanocobalamin (Vitamin B-12) 1,000 MCG/ML VIAL 1000 MCG IM (08:41)
[2022-05-06 08:45] VITALS: BP 145/85; PULSE 85; RESP 17; TEMP 36.9; O2SAT 96
--- NOTE | 2022-05-06 09:06 | MHC.HEMONC ---
Pt here for monthly B12. Pt offers no complaints. B12 monthly given in right deltoid no redness or swelling. Pt toll well. Next B12 06/03/22 calender given. Pt departed.
--- NOTE | 2022-05-31 09:42 | MHC.HEMONC ---
Pt did not show for 0830am B12 appointment. This nurse called patient and left voicemail for patient to call and reschedule.
== END 2022-05-31 | disposition home or self-care (01) ==
LOC: HO.ONC 08:30
PROVIDERS: Nurse Practitioner Family; PCP Internal Medicine; Visit Provider Internal Medicine
DX: D51.0 Vitamin B12 deficiency anemia due to intrinsic factor deficiency (principal); D50.9 Iron deficiency anemia, unspecified; D69.6 Thrombocytopenia, unspecified; K74.60 Unspecified cirrhosis of liver; Z79.899 Other long term (current) drug therapy
CPT/HCPCS: 36415; 80076; 82607; 83540; 85025; 85610; 85730; 86803; 87389; 87522; 96372; 99213; 99214

== ENCOUNTER 2022-05-31 02:52 | Emergency (ER) | payer OTHER, SELFPAY ==
[2022-05-31] VITALS (11 sets, daily range): BP systolic 117–154; BP diastolic 79–120; PULSE 90–200; RESP 11–41; TEMP 35.9–36.9; O2SAT 96–100; BMI 36.5
--- NOTE | ~2022-05-31 | CT_ITS ---
EXAMINATION: CT ABDOMEN AND PELVIS WITHOUT CONTRAST CLINICAL INFORMATION: Abdominal pain COMPARISON: None TECHNIQUE: Multidetector volumetric imaging was performed from the superior aspect of the liver through the pubic symphysis. Sagittal and coronal reformatted images were obtained on the technologist's workstation. This CT examination was performed using dose optimization techniques as appropriate, variously including the following: *Automated exposure control *Adjustment of mA and/or kV according to patient size (this includes techniques or standardized protocols for targeted exams where dose is matched to indication/reason for exam; i.e. extremities or head) *Use of iterative reconstruction technique DLP: 1321 mGy-cm FINDINGS: LUNG BASES: The visualized lung bases are unremarkable. LIVER, GALLBLADDER, AND BILIARY TREE: Liver has a nodular contour suspicious for underlying cirrhosis. There is limited evaluation of the liver parenchyma without intravenous contrast. Gallbladder is grossly unremarkable though not well assessed. PANCREAS: Grossly unremarkable. SPLEEN: Enlarged, measuring approximately 18 cm in the axial plane. ADRENAL GLANDS: Unremarkable. KIDNEYS AND URETERS: No hydronephrosis or obstructing calculus bilaterally. Small left renal cyst noted; no follow-up recommended. BLADDER: Minimally distended and grossly unremarkable. GASTROINTESTINAL TRACT: No evidence of bowel obstruction. There is colonic diverticulosis without convincing diverticulitis. There is a thick-walled appearance of some segments of the collapsed colon, which could be due to underdistention versus portal colopathy. Appendix appears collapsed. Moderate volume of ascites is present. No free air is seen. ABDOMINAL WALL: No significant hernia is appreciated. LYMPH NODES: Normal. VASCULAR: Minimal vascular calcification. PELVIC VISCERA: Unremarkable. OSSEOUS STRUCTURES: Scattered endplate osteophytes throughout the thoracolumbar spine. Facet arthropathy of the lower lumbar spine. CT/CT abdomen pelvis wo IV con IMPRESSION: 1. Moderate volume of ascites. 2. Nodular hepatic contour suspicious for cirrhosis. Splenomegaly. 3. Thick-walled appearance of some segments of the collapsed colon, which could be due to underdistention versus portal colopathy. In the proper clinical setting, an infectious/inflammatory enteritis would be difficult to exclude.
--- NOTE | ~2022-05-31 | XR_ITS ---
EXAMINATION: XR CHEST CLINICAL INFORMATION: Shortness of breath COMPARISON: 11/22/2019 TECHNIQUE: Frontal view of the chest was obtained. FINDINGS: The lungs are hypoinflated. No focal consolidation is seen. No evidence of pneumothorax, pleural effusion, or pulmonary edema. Cardiac silhouette appears borderline enlarged though may be accentuated by low lung volumes. No acute osseous findings are seen. XR/XR chest 1V IMPRESSION: Low lung volumes without acute findings.
--- NOTE | ~2022-05-31 | CT_ITS ---
EXAMINATION: CT FEMUR WITHOUT CONTRAST, RIGHT CLINICAL INFORMATION: Question necrotizing fasciitis COMPARISON: None TECHNIQUE: No intravenous contrast was utilized. Multidetector helical imaging was performed through the right femur. Coronal and sagittal reformatted images were created. This CT examination was performed using dose optimization techniques as appropriate, variously including the following: *Automated exposure control *Adjustment of mA and/or kV according to patient size (this includes techniques or standardized protocols for targeted exams where dose is matched to indication/reason for exam; i.e. extremities or head) *Use of iterative reconstruction technique DLP: 1321 mGy-cm FINDINGS: There is subcutaneous stranding/edema extending from the right inguinal region along the anteromedial thigh to nearly the level of the knee. No discrete collection is seen. No soft tissue gas identified. Mildly prominent right inguinal lymph nodes are favored to be reactive in this setting. Alignment at the right hip is anatomic. There is moderate narrowing of the superior hip joint space with sclerosis and subchondral cyst formation along the acetabulum. No acute fracture is seen. There is patellar spurring at the insertion of the quadriceps tendon. No significant knee effusion. Partially visualized free fluid in the pelvis. CT/CT femur RT wo IV con IMPRESSION: 1. Subcutaneous stranding/edema extending from the right inguinal region along the anteromedial thigh to nearly the level of the knee, suggesting cellulitis. No soft tissue gas or focal collection identified. 2. Mildly prominent right inguinal lymph nodes are favored to be reactive in this setting. 3. Partially visualized free fluid in the pelvis.
--- NOTE | 2022-05-31 03:35 | ECG_ITS ---
Test Reason : tachycardia Blood Pressure : / mmHG Vent. Rate : 202 BPM Atrial Rate : 000 BPM P-R Int : 000 ms QRS Dur : 072 ms QT Int : 222 ms P-R-T Axes : 000 024 006 degrees QTc Int : 407 ms Atrial fibrillation with rapid ventricular response Abnormal ECG When compared with ECG of 05-FEB-2020 03:34, Atrial fibrillation has replaced Sinus rhythm Vent. rate has increased BY 117 BPM Nonspecific T wave abnormality now evident in Inferior leads Referred By: Bridget Moe Electronically Signed By:TU PEARSON MD
--- NOTE | 2022-05-31 03:38 | PC.NURSE ---
hr increased to 220, palpable irrg, ?afib, confirmed with ekg afib. dr santos at bedside, pt talking in full sentences.
--- NOTE | 2022-05-31 03:46 | ED.SOB ---
HPI - SOB/Dyspnea General Chief Complaint: Dyspnea Stated Complaint: difficulty breathing Time Seen by Provider: 05/31/22 03:41 History of Present Illness HPI Narrative: Patient is a 61-year-old male with a history of hepatitis-C history of morbid obesity history of diabetes history of alcohol and IV drug use. Presented today with shortness of breath generalized malaise. Palpitation that is been ongoing since 07:00. Patient finally came in for further evaluation. MD elicited complaint: shortness of breath Related Data Previous Rx's Medication Instructions Recorded blood sugar diagnostic (FreeStyle #50 ea 05/05/20 Test strips) blood-glucose meter (FreeStyle #1 ea 05/05/20 Austin Lite kit) lancets 28 gauge (FreeStyle #50 ea 05/05/20 Lancets) lisinopril 20 mg tablet 20 mg PO DAILY #90 tabs 01/12/22 Allergies Allergy/AdvReac Type Severity Reaction Status Date / Time No Known Allergies Allergy Verified 02/24/22 08:08 [No Known Allergies*] Review of Systems Review of Systems: Positive palpitation Positive generalized malaise Positive nausea Yes all other systems are reviewed and are negative [facility] Past Medical History Attestation statement: The following information was validated with the patient. Medical History Diabetes mellitus Encounter for circumcision Essential (primary) hypertension History of drug use Iron deficiency anemia Iron deficiency anemia Lumbar degenerative disc disease Morbid obesity Pancytopenia Pernicious anemia Pernicious anemia Surgical History History of esophagogastroduodenoscopy (EGD) Family History Family History Sister Colon cancer Father Colon cancer Mother Hypertension Family/Other Substance use disorder Social History Social History Housing: Apartment Alcohol intake: current Alcohol intake frequency: a few times a week Alcohol type: beer Patient Tobacco Use Status: Former Tobacco user Tobacco use type: Cigarette Smoked in Last 30 Days: Yes e-Cigarette/Vaping Use: Never Used Second Hand Smoke Exposure: No Use of substances other than those prescribed or required for medical reasons: Yes Substance Use Type: Marijuana Advance Directives: No service: No Current occupational status: employed Current occupational exposures/hazards: No Cognitive needs: No Hearing needs: No Vision needs: Yes (Pt has not seen a eye doctor for 11 years. ) Physical Exam Vital Signs: Vital Signs: Last Vital Signs Temp 97.5 F 05/31/22 03:31 Pulse 160 H 05/31/22 06:00 Resp 16 05/31/22 05:36 BP 130/79 05/31/22 04:50 Pulse Ox 96 05/31/22 03:31 O2 Del Method 05/31/22 03:31 BMI result Body Mass Index 36.5 Appearance: Alert. Oriented X3. No acute distress. Eyes: Pupils equal, round and reactive to light. ENT: Pharynx normal. Neck: Normal inspection. Neck supple. No lymph nodes noted. No crepitus CVS: Tachycardic and irregular Respiratory: No respiratory distress. Breath sounds normal. No Wheezing. No rales Abdomen: Soft and nontender. No rigidity. No distention. good BS x4 Skin: Skin warm and dry. Normal skin color. Normal skin turgor. Extremities: No lower extremity edema. Neurovascular intact to all extremities. No Lacerations. No Rash Neuro: Oriented X 3. No motor deficit. No sensory deficit. Moving all extermities. No slurred speech Medications Administered Generic Name Dose Route Start Last Admin Trade Name Freq PRN Reason Stop Dose Admin Diltiazem HCl 125 mg/ Sodium 125 mls @ 0 mls/hr 05/31/22 04:15 05/31/22 05:22 Chloride IVCONT 15 mg/hr .Q0M MIRIAN 15 mls/hr Titration Protocol Per Protocol Vancomycin HCl 2,000 mg in 520 mls @ 260 mls/hr 05/31/22 05:45 05/31/22 06:24 Vancomycin/Ns IV 05/31/22 07:44 260 mls/hr ONCE ONE Administration Discontinued Medications Generic Name Dose Route Start Last Admin Trade Name Freq PRN Reason Stop Dose Admin Aspirin 324 mg 05/31/22 03:43 05/31/22 03:49 Aspirin 81 Mg Tab.Chew PO 05/31/22 03:44 324 mg ONCE ONE Administration Digoxin 0.125 mg 05/31/22 05:36 05/31/22 06:23 Digoxin 0.5 Mg/2 Ml Ampul IVPUSH 05/31/22 05:37 0.125 mg ONCE ONE Administration Diltiazem HCl 20 mg 05/31/22 03:41 05/31/22 03:49 Diltiazem Hcl 50 Mg/10 Ml Vial IVPUSH 05/31/22 03:42 20 mg STAT STA Administration Diltiazem HCl 10 mg 05/31/22 04:11 05/31/22 04:18 Diltiazem Hcl 50 Mg/10 Ml Vial IVPUSH 05/31/22 04:12 10 mg STAT STA Administration Hydromorphone HCl 0.5 mg 05/31/22 05:28 05/31/22 05:36 Hydromorphone Hcl 0.5 Mg/0.5 Ml Syringe IVPUSH 05/31/22 05:29 0.5 mg ONCE ONE Administration Protocol Sodium Chloride 1,000 mls @ 999 mls/hr 05/31/22 03:45 05/31/22 03:54 Ns IV 05/31/22 04:45 999 mls/hr .Q1H1M MIRIAN Administration Sodium Chloride 1,000 mls @ 999 mls/hr 05/31/22 04:45 05/31/22 05:05 Ns IV 05/31/22 05:45 999 mls/hr .Q1H1M MIRIAN Administration Piperacillin Sod/Tazobactam 100 mls @ 200 mls/hr 05/31/22 05:28 05/31/22 06:25 Sod 4.5 gm/ Sodium Chloride IV 05/31/22 05:57 Infused ONCE ONE Infusion Metoprolol Tartrate 5 mg 05/31/22 05:37 05/31/22 06:23 Metoprolol Tartrate 5 Mg/5 Ml Vial IVPUSH 05/31/22 05:38 5 mg ONCE ONE Administration Morphine Sulfate 2 mg 05/31/22 04:11 05/31/22 04:18 Morphine Sulfate 2 Mg/Ml Cartridge IVPUSH 05/31/22 04:12 2 mg ONCE ONE Administration Protocol Medical Decision Making Medical Decision Making MDM Narrative: 3:30I was called to bedside because patient had abnormal vital signs. Had a heart rate of approximately 200. An EKG was done immediately after patient was placed on the monitor. The EKG showed an atrial fibrillation pattern heart rate is approximately 200. Patient with this elevated heart rate had a blood pressure 120/70. We will go ahead and give patient a dose of Cardizem. Will workup the cause of patient's atrial fibrillation. Alcohol levels ordered. Electrolytes ordered. Thyroid ordered. 05:00 patient's ABG showed a significant metabolic acidosis. Seems acute. Lactate ordered. Patient undress. There is an area of redness in the leg. Will obtain cultures. Start vancomycin and also Zosyn for possible necrotizing fasciitis causing patient's pain. At this point patient is on Cardizem drip after 30 mg of Cardizem IV push heart rate is still a proximally 160. Appears to be atrial fibrillation on the monitor. Patient's troponin was elevated. BNP elevated. Cannot exclude the possibility of congestive heart failure secondary to decrease preload from the atrial fibrillation. Patient already given 2 L of fluid. Will monitor at this point. Aware that this is not a 30 cc/kilos of IV fluid. Hospitalist aware. Consulting on the case for admission. Patient creatinine was elevated at over 2. This is new. CT scan of the abdomen will also be ordered to look for post renal obstructive process. 05:45. Patient's lactate came back at 12. Culture obtained at this point. Antibiotic being hung. Patient going to the CT scanner as soon as possible. Pediatric Cns contacted. 06:00 will contact surgery as well. Patient is at the CT scanner at this point. at bedside in the CT scanner. [place] this case is beyond the capability of [facility]. Patient to be transferred. 0620 patient's case discussed with [facility]. Excepted patient to the emergency department under Dr. Steiner service. Patient in critical condition 0625 risk and benefit of transfer explained to patient patient agreed to plan of transfer. Risks of transfer include the risk of be on an ambulance. Benefit being surgical team that could provide the necessary care. Cardiac team that can provide the necessary care. Patient's heart rate came down to approximately 130. He is currently on the Cardizem drip at approximately 15 milligrams/hour Differential Diagnosis Differential Diagnoses: The differential diagnosis associated with the presentation includes Atrial fibrillation, alcohol use, thyroid problems, myocardial infarction, necrotizing fasciitis, pneumonia, UTI, acute renal failure Consult Healthcare Provider Management of the patient was discussed with: Hospitalist and Sports Betting Manager surgery Case discussed with Dr. Grant felt patient's case beyond the capability of [facility] Lab Attestation statement: I reviewed the patient's lab results. 05/31/22 03:48 05/31/22 03:48 Labs: Lab Results 05/31/22 05/31/22 05/31/22 Range/Units 03:44 03:48 03:48 WBC 3.7 L (4.8-10.8) X10*3/uL RBC 5.36 D (4.60-5.80) X10*6/uL Hgb 13.9 L D (14.0-18.0) g/dl Hct 43.7 D (42.0-52.0) % MCV 81.5 (80.0-98.0) fL MCH 25.9 L (27.0-33.0) pg MCHC 31.8 (31.0-36.0) g/dl RDW 21.2 H (11.0-16.0) % Plt Count 55 L D (160-400) X10*3/uL MPV TNP Immature Gran % (Auto) Cancelled Neut % (Auto) Cancelled Lymph % (Auto) Cancelled [place] % (Auto) Cancelled Eos % (Auto) Cancelled Baso % (Auto) Cancelled Lymph # (Auto) Cancelled [place] # (Auto) Cancelled Eos # (Auto) Cancelled Baso # (Auto) Cancelled Abs Immat Gran (auto) Cancelled Absolute Neuts (auto) Cancelled Absolute Nucleated RBC 0.000 (0.0-0.012) X10*3/uL Nucleated RBC % (auto) 0.0 (0.0-0.2) /100WBC Neutrophils % (Manual) 85 H (45-73) % Band Neutrophils % 7 H (3-5) % Lymphocytes % (Manual) 3 L (20-40) % Monocytes % (Manual) 2 (2-11) % Basophils % (Manual) 1 (0-2) % Metamyelocytes % 2 % Abs Neuts (Manual) 3.4 (2.0-8.3) X10*3/uL Lymphocytes # (Manual) 0.1 L (1.2-4.9) X10*3/uL Monocytes # (Manual) 0.1 (0.1-1.2) X10*3/uL Metamyelocytes # 0.1 X10*3/uL Smudge Cells PRESENT Toxic Granulation PRESENT Toxic Vacuolation PRESENT Platelet Estimate DECREASED (NORMAL) Plt Morphology Comment NORMAL RBC Morphology NOTED Polychromasia 1+ (0-2) /OIF [place] Cells 1+ (0-2) /OIF Acanthocytes (Spur) 1+ (0-2) /OIF O2 Saturation % ABG pH at Pt Temp (7.35-7.45) ABG pCO2 at Pt Temp (32-45) mmHg ABG pO2 at Pt Temp (83-108) mmHg ABG HCO3 (22-26) mmol/L ABG Base Excess (Actual) mmol/L Sodium (135-145) mmol/L Potassium (3.3-5.1) mmol/L Chloride (96-108) mmol/L Carbon Dioxide (22-29) mmol/L Anion Gap (12-20) BUN (9-16) mg/dL Creatinine (0.5-1.4) mg/dL Estim Creat Clear Calc Estimated GFR POC Glucose 64 (60-115) mg/dL Random Glucose (60-115) mg/dL Lactic Acid (0.5-2.0) mmol/L Calcium (8.4-10.2) mg/dL Phosphorus (2.7-4.5) mg/dL Magnesium (1.6-2.6) mg/dL Troponin I High Sens 115.5 H* (<3.5-35.0) ng/L C-Reactive Protein (< or = 0.50) mg/dL B-Natriuretic Peptide (<100) pg/mL TSH (0.32-4.0) uIU/mL Ethyl Alcohol mg/dL Acetone, Qual (Negative) COVID-19 (VILMA) (Negative) COVID-19 Clin Com 05/31/22 05/31/22 05/31/22 Range/Units 03:48 03:48 04:44 WBC (4.8-10.8) X10*3/uL RBC (4.60-5.80) X10*6/uL Hgb (14.0-18.0) g/dl Hct (42.0-52.0) % MCV (80.0-98.0) fL MCH (27.0-33.0) pg MCHC (31.0-36.0) g/dl RDW (11.0-16.0) % Plt Count (160-400) X10*3/uL MPV Immature Gran % (Auto) Neut % (Auto) Lymph % (Auto) [place] % (Auto) Eos % (Auto) Baso % (Auto) Lymph # (Auto) [place] # (Auto) Eos # (Auto) Baso # (Auto) Abs Immat Gran (auto) Absolute Neuts (auto) Absolute Nucleated RBC (0.0-0.012) X10*3/uL Nucleated RBC % (auto) (0.0-0.2) /100WBC Neutrophils % (Manual) (45-73) % Band Neutrophils % (3-5) % Lymphocytes % (Manual) (20-40) % Monocytes % (Manual) (2-11) % Basophils % (Manual) (0-2) % Metamyelocytes % % Abs Neuts (Manual) (2.0-8.3) X10*3/uL Lymphocytes # (Manual) (1.2-4.9) X10*3/uL Monocytes # (Manual) (0.1-1.2) X10*3/uL Metamyelocytes # X10*3/uL Smudge Cells Toxic Granulation Toxic Vacuolation Platelet Estimate (NORMAL) Plt Morphology Comment RBC Morphology Polychromasia /OIF [place] Cells /OIF Acanthocytes (Spur) /OIF O2 Saturation 99.0 % ABG pH at Pt Temp 7.23 L (7.35-7.45) ABG pCO2 at Pt Temp 16 L* (32-45) mmHg ABG pO2 at Pt Temp 130 H (83-108) mmHg ABG HCO3 7 L (22-26) mmol/L ABG Base Excess (Actual) -18.0 mmol/L Sodium 134 L (135-145) mmol/L Potassium 3.9 (3.3-5.1) mmol/L Chloride 106 (96-108) mmol/L Carbon Dioxide 8 L* D (22-29) mmol/L Anion Gap 24 H (12-20) BUN 29 H (9-16) mg/dL Creatinine 2.74 H (0.5-1.4) mg/dL Estim Creat Clear Calc 34.7 Estimated GFR 24 POC Glucose (60-115) mg/dL Random Glucose 63 (60-115) mg/dL Lactic Acid (0.5-2.0) mmol/L Calcium 8.2 L (8.4-10.2) mg/dL Phosphorus 3.6 (2.7-4.5) mg/dL Magnesium 1.6 (1.6-2.6) mg/dL Troponin I High Sens (<3.5-35.0) ng/L C-Reactive Protein (< or = 0.50) mg/dL B-Natriuretic Peptide 528 H (<100) pg/mL TSH 3.73 (0.32-4.0) uIU/mL Ethyl Alcohol < 10 mg/dL Acetone, Qual Negative (Negative) COVID-19 (VILMA) (Negative) COVID-19 Clin Com 05/31/22 05/31/22 05/31/22 Range/Units 05:15 05:15 05:15 WBC (4.8-10.8) X10*3/uL RBC (4.60-5.80) X10*6/uL Hgb (14.0-18.0) g/dl Hct (42.0-52.0) % MCV (80.0-98.0) fL MCH (27.0-33.0) pg MCHC (31.0-36.0) g/dl RDW (11.0-16.0) % Plt Count (160-400) X10*3/uL MPV Immature Gran % (Auto) Neut % (Auto) Lymph % (Auto) [place] % (Auto) Eos % (Auto) Baso % (Auto) Lymph # (Auto) [place] # (Auto) Eos # (Auto) Baso # (Auto) Abs Immat Gran (auto) Absolute Neuts (auto) Absolute Nucleated RBC (0.0-0.012) X10*3/uL Nucleated RBC % (auto) (0.0-0.2) /100WBC Neutrophils % (Manual) (45-73) % Band Neutrophils % (3-5) % Lymphocytes % (Manual) (20-40) % Monocytes % (Manual) (2-11) % Basophils % (Manual) (0-2) % Metamyelocytes % % Abs Neuts (Manual) (2.0-8.3) X10*3/uL Lymphocytes # (Manual) (1.2-4.9) X10*3/uL Monocytes # (Manual) (0.1-1.2) X10*3/uL Metamyelocytes # X10*3/uL Smudge Cells Toxic Granulation Toxic Vacuolation Platelet Estimate (NORMAL) Plt Morphology Comment RBC Morphology Polychromasia /OIF Jackie Cells /OIF Acanthocytes (Spur) /OIF O2 Saturation % ABG pH at Pt Temp (7.35-7.45) ABG pCO2 at Pt Temp (32-45) mmHg ABG pO2 at Pt Temp (83-108) mmHg ABG HCO3 (22-26) mmol/L ABG Base Excess (Actual) mmol/L Sodium 136 (135-145) mmol/L Potassium 3.6 (3.3-5.1) mmol/L Chloride 108 (96-108) mmol/L Carbon Dioxide 8 L* (22-29) mmol/L Anion Gap 24 H (12-20) BUN 29 H (9-16) mg/dL Creatinine 2.68 H (0.5-1.4) mg/dL Estim Creat Clear Calc 35.5 Estimated GFR 25 POC Glucose (60-115) mg/dL Random Glucose 50 L* (60-115) mg/dL Lactic Acid 12.6 H* (0.5-2.0) mmol/L Calcium 7.8 L (8.4-10.2) mg/dL Phosphorus (2.7-4.5) mg/dL Magnesium (1.6-2.6) mg/dL Troponin I High Sens (<3.5-35.0) ng/L C-Reactive Protein (< or = 0.50) mg/dL B-Natriuretic Peptide (<100) pg/mL TSH (0.32-4.0) uIU/mL Ethyl Alcohol mg/dL Acetone, Qual (Negative) COVID-19 (VILMA) Negative (Negative) COVID-19 Clin Com See Note 05/31/22 Range/Units 05:46 WBC (4.8-10.8) X10*3/uL RBC (4.60-5.80) X10*6/uL Hgb (14.0-18.0) g/dl Hct (42.0-52.0) % MCV (80.0-98.0) fL MCH (27.0-33.0) pg MCHC (31.0-36.0) g/dl RDW (11.0-16.0) % Plt Count (160-400) X10*3/uL MPV Immature Gran % (Auto) Neut % (Auto) Lymph % (Auto) [place] % (Auto) Eos % (Auto) Baso % (Auto) Lymph # (Auto) [place] # (Auto) Eos # (Auto) Baso # (Auto) Abs Immat Gran (auto) Absolute Neuts (auto) Absolute Nucleated RBC (0.0-0.012) X10*3/uL Nucleated RBC % (auto) (0.0-0.2) /100WBC Neutrophils % (Manual) (45-73) % Band Neutrophils % (3-5) % Lymphocytes % (Manual) (20-40) % Monocytes % (Manual) (2-11) % Basophils % (Manual) (0-2) % Metamyelocytes % % Abs Neuts (Manual) (2.0-8.3) X10*3/uL Lymphocytes # (Manual) (1.2-4.9) X10*3/uL Monocytes # (Manual) (0.1-1.2) X10*3/uL Metamyelocytes # X10*3/uL Smudge Cells Toxic Granulation Toxic Vacuolation Platelet Estimate (NORMAL) Plt Morphology Comment RBC Morphology Polychromasia /OIF [place] Cells /OIF Acanthocytes (Spur) /OIF O2 Saturation % ABG pH at Pt Temp (7.35-7.45) ABG pCO2 at Pt Temp (32-45) mmHg ABG pO2 at Pt Temp (83-108) mmHg ABG HCO3 (22-26) mmol/L ABG Base Excess (Actual) mmol/L Sodium (135-145) mmol/L Potassium (3.3-5.1) mmol/L Chloride (96-108) mmol/L Carbon Dioxide (22-29) mmol/L Anion Gap (12-20) BUN (9-16) mg/dL Creatinine (0.5-1.4) mg/dL Estim Creat Clear Calc Estimated GFR POC Glucose (60-115) mg/dL Random Glucose (60-115) mg/dL Lactic Acid (0.5-2.0) mmol/L Calcium (8.4-10.2) mg/dL Phosphorus (2.7-4.5) mg/dL Magnesium (1.6-2.6) mg/dL Troponin I High Sens (<3.5-35.0) ng/L C-Reactive Protein 11.18 H (< or = 0.50) mg/dL B-Natriuretic Peptide (<100) pg/mL TSH (0.32-4.0) uIU/mL Ethyl Alcohol mg/dL Acetone, Qual (Negative) COVID-19 (VILMA) (Negative) COVID-19 Clin Com ABG Data Attestation ABG: I personally reviewed and interpreted this ABG as follows: Interpretation: Significant metabolic acidosis uncompensated patient's pH was 7.22 with a pCO2 of 15 with a PaO2 of 129. No hypoxia noted. Independent Interpretation I performed an independent interpretation of an: EKG Interpretation: Patient's initial EKG showed an atrial fibrillation going at approximately 200. Repeat EKG done at approximately 05:30 showed an atrial fibrillation pattern heart rate is approximately 150. External Record Review External record reviewed: Inpatient record Chronic Conditions Patient?s care impacted by: Diabetes and Hypertension Social Determinants Patient?s care significantly limited by Social Determinants of Health including: Alcoholism and drug addiction in family Critical Care Time Critical Care Time Critical Care Time: Yes Total Critical Care Time: 120 Attestation: I have personally provided 120 minutes of critical care time exclusive of time spent on separately billable procedures. Time includes review of lab data, radiology results, discussion with consultants, and monitoring for potential decompensation. Interventions were performed as documented above Discharge Plan Discharge Clinical Impression: Diabetes, Hepatitis C, Atrial fibrillation, Necrotizing fasciitis Patient Disposition: [facility] Transfer Details: Transfer to [facility] Prescriptions: No Action lisinopril 20 mg tablet 20 mg PO DAILY Qty: 90 0RF (DME) lancets [FreeStyle Lancets] 28 gauge misc See Rx Instructions .ROUTE .MEDSUPPLY Qty: 50 11RF Rx Instructions: once a day (DME) blood-glucose meter [FreeStyle Austin Lite] Kit See Rx Instructions .ROUTE .MEDSUPPLY Qty: 1 0RF Rx Instructions: As directed (DME) FreeStyle Test Strip See Rx Instructions .ROUTE .MEDSUPPLY Qty: 50 11RF Rx Instructions: once a day
[2022-05-31 03:48] LABS: Glucose, Whole Blood 64 mg/dL (60-115)
[2022-05-31] MEDS: Aspirin 81 MG TAB.CHEW 324 MG PO (03:49)
[2022-05-31] MEDS: dilTIAZem HCL 50 MG/10 ML VIAL 20 MG IVPUSH (03:49)
[2022-05-31] MEDS: 0.9 % Sodium Chloride 1,000 ML 999 ML IV ×2 (03:54→05:05)
[2022-05-31 03:56] LABS: Hematocrit 43.7 % (42.0-52.0); Hemoglobin 13.9 g/dl (14.0-18.0); Mean Corpuscular HGB Conc 31.8 g/dl (31.0-36.0); Mean Corpuscular Hemoglobin 25.9 pg (27.0-33.0); Mean Corpuscular Volume 81.5 fL (80.0-98.0); Red Blood Count 5.36 X10*6/uL (4.60-5.80); Red Cell Distribution Width 21.2 % (11.0-16.0)
[2022-05-31 03:59] LABS: Platelet Count 55 X10*3/uL (160-400)
[2022-05-31 04:00] LABS: WBC ABN SCTR FOR CBC 1; White Blood Count 3.7 X10*3/uL (4.8-10.8)
[2022-05-31 04:17] LABS: Troponin-I High Sensitivity 115.5 ng/L (<3.5-35.0)
[2022-05-31] MEDS: dilTIAZem HCL 50 MG/10 ML VIAL 10 MG IVPUSH (04:18)
[2022-05-31] MEDS: Morphine Sulfate 2 MG/ML CARTRIDGE IVPUSH (04:18)
[2022-05-31 04:21] LABS: Acanthocytes 1+ (0-2) /OIF; B Type Natriuretic Peptide 528 pg/mL (<100); Band Neutrophils Percent 7 % (3-5); Basophils Percent Manual 1 % (0-2); Burr Cells 1+ (0-2) /OIF; Lymphocytes Absolute Manual 0.1 X10*3/uL (1.2-4.9); Lymphocytes Percent Manual 3 % (20-40); Metamyelocytes Absolute 0.1 X10*3/uL; Metamyelocytes Percent 2 %; Monocytes Absolute Manual 0.1 X10*3/uL (0.1-1.2); Monocytes Percent Manual 2 % (2-11); Neutrophils Absolute Manual 3.4 X10*3/uL (2.0-8.3); Neutrophils Percent Manual 85 % (45-73); Platelet Estimate DECREASED (NORMAL); Platelet Morphology Comment NORMAL; RBC Morphology NOTED
[2022-05-31 04:22] LABS: Polychromasia 1+ (0-2) /OIF; Smudge Cells PRESENT; Toxic Granulation PRESENT; Toxic Vacuolation PRESENT
[2022-05-31 04:30] LABS: Anion Gap 24 (12-20); Blood Urea Nitrogen 29 mg/dL (9-16); Calcium 8.2 mg/dL (8.4-10.2); Carbon Dioxide 8 mmol/L (22-29); Chloride 106 mmol/L (96-108); Creatinine Clr Calc Pharmacy 34.7; Estimated Glomerular Filt Rate 24; Ethanol < 10 mg/dL; Glucose Random 63 mg/dL (60-115); Magnesium 1.6 mg/dL (1.6-2.6); Phosphorus 3.6 mg/dL (2.7-4.5); Potassium 3.9 mmol/L (3.3-5.1); Sodium 134 mmol/L (135-145)
[2022-05-31 04:45] LABS: TSH reflex Free T4 3.73 uIU/mL (0.32-4.0)
[2022-05-31 04:52] LABS: ABG HCO3 7 mmol/L (22-26); ABG pCO2 16 mmHg (32-45); ABG pH 7.23 (7.35-7.45); ABG pO2 130 mmHg (83-108)
[2022-05-31] MEDS: dilTIAZem HCL 125 MG in 0.9 % Sodium Chloride 100 ML 10 MG IVCONT (04:55)
[2022-05-31 05:04] LABS: Acetone, serum QL Negative (Negative)
--- NOTE | 2022-05-31 05:25 | PC.NURSE ---
Nursing assessment: Pt came in presenting hip and right shoulder pain, upon triage pt's HR was ~200. PT's has IV 20 on his right forearm, and right wrist. IVF 2 bags are running and Diltiazem as order by the provider. PT is continuos on the game tester and it shows a-fib. Apical pulse was check 165, bilaterally radial pulse was also check. Pt was administered aspirin, Dialtiazem IV push as order. Pt was diaphoretic and he is in excruciating back/hip pain. BP is stable. Labs has been drawn.
[2022-05-31] MEDS: HYDROmorphone HCl 0.5 MG/0.5 ML SYRINGE IVPUSH ×2 (05:36→07:01)
[2022-05-31 05:38] LABS: COVID-19 Test Negative (Negative); IDNOW Serial# 16C4AD1C
[2022-05-31 05:44] LABS: Lactic Acid 12.6 mmol/L (0.5-2.0)
[2022-05-31] MEDS: Piperacillin Sodium/Tazobactam 4.5 GM in 0.9 % Sodium Chloride 100 ML IV (05:44)
[2022-05-31 05:46] LABS: Anion Gap 24 (12-20); Blood Urea Nitrogen 29 mg/dL (9-16); Calcium 7.8 mg/dL (8.4-10.2); Carbon Dioxide 8 mmol/L (22-29); Chloride 108 mmol/L (96-108); Creatinine Clr Calc Pharmacy 35.5; Estimated Glomerular Filt Rate 25; Glucose Random 50 mg/dL (60-115); Potassium 3.6 mmol/L (3.3-5.1); Sodium 136 mmol/L (135-145)
--- NOTE | 2022-05-31 05:48 | ECG_ITS ---
Test Reason : repeat Blood Pressure : / mmHG Vent. Rate : 146 BPM Atrial Rate : 000 BPM P-R Int : 000 ms QRS Dur : 074 ms QT Int : 282 ms P-R-T Axes : 000 025 024 degrees QTc Int : 439 ms Atrial fibrillation with rapid ventricular response Abnormal ECG When compared with ECG of 31-MAY-2022 03:36, No significant change was found Referred By: Bridget Moe Electronically Signed By:TU PEARSON MD
--- NOTE | 2022-05-31 06:00 | MHC.EDTECH ---
call out to [facility] @[phone] [facility] is not accepting any icu transfers
[2022-05-31 06:01] LABS: ABG Refer to POC result
--- NOTE | 2022-05-31 06:01 | MHC.EDTECH ---
call out to [facility] transfer line at [phone] [facility] is not accepting any patients at the moment due to no capacity
[2022-05-31 06:17] LABS: C Reactive Protein 11.18 mg/dL (< or = 0.50)
[2022-05-31] MEDS: Digoxin 0.5 MG/2 ML AMPUL 0.125 MG IVPUSH (06:23)
[2022-05-31] MEDS: Metoprolol Tartrate 5 MG/5 ML VIAL IVPUSH (06:23)
--- NOTE | 2022-05-31 06:33 | MHC.EDTECH ---
Face sheet faxed to [facility] @[phone]
[2022-05-31] MEDS: Dextrose 50 % 25 GM/50 ML SYRINGE IVPUSH ×2 (06:38→08:20)
--- NOTE | 2022-05-31 06:38 | MHC.EDTECH ---
Call out to [facility] @[phone] for ALS transport to [facility] TINA Joiner gave me an ETA of 45 minutes
--- NOTE | 2022-05-31 06:43 | MHC.EDTECH ---
[facility] is unable to transport patient until 829. informed engineer assistant that it is STAT. [facility] is trying to pass along ALS transport to other ambulance company
--- NOTE | 2022-05-31 07:09 | MHC.EDTECH ---
call out to [facility] @[phone] for an update on ETA or if phone calls were made to pass carbon electrodes supervisor to another ambulance company. [facility] said they will call me back
[2022-05-31 07:20] LABS: Reflex Lactate? Lactic Acid Added
--- NOTE | 2022-05-31 07:24 | PC.NURSE ---
Nursing assessment: Pt's a/o x4, pt BP is stable, pt is on continuos media monitor and it shows a-fib, it fluctuates from a130 to 175. Frequent PVC. Pt has pitting edema +3 bilaterally on his legs. Pt has a new rash on his upper thigh this nurse renny with a marker. Pt's niece is at bedside. Pt is afribrile and denies chest, mandible, and shoulder pain. Nursing intervention: Pt's is on the media monitor and it shows a-fib. Pt's in excruciating pain 10/10, EKG was obtain and it show3s a-fib with Ventricular. Provider has been notified. Pt mediations has been administered. @IV bags was infused. Pt abx are running and Diltiazem as order provider the doctor. Pt was taken to CT scan for hip and leg scan. This nurse was at bedside.
--- NOTE | 2022-05-31 07:24 | MHC.EDTECH ---
@ 2802 CALL RECEIVED FROM [facility] SAYING THEY WEREUNSUCCESSFUL TO PASS THIS STAT TX TO [facility] THEY CALLED [facility], [facility] AND [facility], THEY ALL DECLINED THIS CALL DUE TO DISTANCE PER [facility] GIVES AN 8 AM REPAIR CLERK TIME FOR THIS PT
--- NOTE | 2022-05-31 07:45 | PC.NURSE ---
Report has been given to Denise WILDER.
[2022-05-31 07:49] LABS: Glucose, Whole Blood 96 mg/dL (60-115)
[2022-05-31 07:50] LABS: Glucose, Whole Blood 73 mg/dL (60-115)
--- NOTE | 2022-05-31 08:16 | PC.NURSE ---
Notified of BS will admin dextrose as ordered.
--- NOTE | 2022-05-31 08:29 | MHC.EDTECH ---
@0805 CALL PLACED TO [facility] STAT ALS 0800AM TANKROOM WORKER HAD NOT HAPPENED FOR THIS PT TOLD THE CREW SIGNED ON 4 MINUTES AGO ON THE WAY HERE FOR TANKROOM WORKER.
--- NOTE | 2022-05-31 08:29 | PHA.MEDREC ---
Pharmacy Consult ? Medication Reconciliation Pharmacy has completed the medication reconciliation. Went to talk to patient, patient will not acknowledge anyone. Used claims, patient has a 90 day supply of lisinopril from 01/26/22
--- NOTE | 2022-05-31 08:35 | MHC.EDTECH ---
@[phone] [facility] HERE TO PICK THIS PT UP FOR TX TO [facility] ER
--- NOTE | 2022-05-31 08:42 | PC.NURSE ---
Report to EMS patient being placed on stretcher for transfer to [place]
[2022-05-31 09:40] LABS: Reflex Lactate? 2 Y
[2022-05-31 12:27] LABS: Reflex Lactate? 2 Y; ~Lactic Acid-LAB USE ONLY 17.1 mmol/L (0.5-2.0)
== END 2022-05-31 08:50 | disposition short-term general hospital (02) ==
PROVIDERS: Student in an Organized Health Care Education/Training Program; Emergency Provider Emergency Medicine Emergency Medical Services; PCP Internal Medicine
DX: M72.6 Necrotizing fasciitis (principal); I48.91 Unspecified atrial fibrillation; E87.20 Acidosis, unspecified; E11.9 Type 2 diabetes mellitus without complications; R00.0 Tachycardia, unspecified; R06.02 Shortness of breath; R60.0 Localized edema; B19.20 Unspecified viral hepatitis C without hepatic coma; Z20.822 Contact with and (suspected) exposure to COVID-19; I10 Essential (primary) hypertension; R23.8 Other skin changes; D51.0 Vitamin B12 deficiency anemia due to intrinsic factor deficiency; E66.01 Morbid (severe) obesity due to excess calories; Z68.36 Body mass index [BMI] 36.0-36.9, adult; F12.90 Cannabis use, unspecified, uncomplicated; Z87.891 Personal history of nicotine dependence
CPT/HCPCS: 36415; 71045; 73700; 74176; 80048; 82009; 82077; 82803; 82947; 83605; 83735; 83880; 84100; 84443; 84484; 85007; 85025; 85027; 86140; 87040; 87147; 87186; 87205; 87635; 93005; 96361; 96365; 96366; 96367; 96375; 96376; 99285; J1160; J1170; J2270; J2543; J3370